=== PATIENT | female | born 1990 | race Hispanic/Latino ===

== ENCOUNTER 2022-02-18 09:07 | Outpatient (CLI) | payer OTHER | END 2022-02-18 09:08 | disposition home or self-care (01) | LOC: CSHULT 09:07 | PROVIDERS: ATTEND Nurse Practitioner Women's Health | DX: Z34.82 Encounter for supervision of other normal pregnancy, second trimester (principal); Z3A.21 21 weeks gestation of pregnancy | CPT/HCPCS: 76805 ==

== ENCOUNTER 2022-06-13 14:11 | Inpatient (IN) | payer MEDICAID, OTHER ==
[~2022-06-13 14:11] MED LIST: Bupivacaine/Epinephrine 0.25% 30 ML VIAL ONE
[2022-06-13] MEDS ORDERED: Promethazine HCl 25 MG/ML VIAL IM PRN ×2 (15:03→19:08)
[2022-06-13] MEDS ORDERED: Butorphanol Tartrate 1 MG/ML VIAL SLOW IVP PRN (15:03)
[2022-06-13] MEDS ORDERED: Acetaminophen 500 MG TAB PO PRN (15:03)
[2022-06-13] MEDS ORDERED: HYDROcodone/Acetaminophen 5/325 mg Tablet PO PRN ×3 (15:03→22:02)
[2022-06-13] MEDS ORDERED: hydrALAZINE 20 MG/ML VIAL SLOW IVP PRN ×2 (15:03→22:02)
[2022-06-13] MEDS ORDERED: Carboprost 250 MCG/ML AMP IM PRN (15:03)
[2022-06-13] MEDS ORDERED: Diphenoxylate HCl/Atropine Tablet PO PRN (15:03)
[2022-06-13] MEDS ORDERED: Ondansetron PF 4 MG/2 ML Vial IVP PRN ×3 (15:03→22:02)
[2022-06-13] MEDS ORDERED: Lidocaine 1% (PF) 30 ML VIAL SC PRN (15:03)
[2022-06-13] MEDS ORDERED: Ibuprofen 800 MG TAB PO PRN (15:03)
[2022-06-13] MEDS ORDERED: Methylergonovine 0.2 MG/ML VIAL IM PRN (15:03)
[2022-06-13] MEDS ORDERED: NS w/ Oxytocin 30 units 500 ML IV SCH ×3 (15:15→22:30)
[2022-06-13] MEDS ORDERED: Lactated Ringer's 1,000 ML IV SCH (15:15)
[2022-06-13 15:42] VITALS: BMI 34.7
[2022-06-13] MEDS ORDERED: NS w/ Oxytocin 30 units 500 ML ONE (15:44)
[2022-06-13 16:47] LABS: Hemoglobin 12.2 g/dL (12.0-15.5); Mean Corpuscular HGB CONC 34.7 g/dL (32.0-36.0); Mean Corpuscular Hemoglobin 31.2 pg (27.0-33.0); Mean Platelet Volume 10.4 fl (7.4-10.4); Platelet Count 204 10x3/uL (150-450); RBC Distribution Width 12.7 % (11.5-14.5); Red Blood Cell (RBC) Count 3.91 10x6/uL (3.90-5.03); White Blood Cell (WBC) Count 7.9 10x3/uL (3.5-10.5)
[2022-06-13 17:15] LABS: Hep B Surf Ag Non-Reactive S/CO (NonReactive)
[2022-06-13 17:15] LABS: Syphilis Antibody Nonreactive (Nonreactive); Syphilis Antibody Index 0.21 S/CO (<1.00 Non-Reactive)
[2022-06-13 17:21] LABS: HBSAg Index 0.21 S/CO (0-0.99)
[2022-06-13] MEDS ORDERED: Fentanyl 2 mcg/Bup 0.1% Cadd 100 ML ONE (18:33)
[2022-06-13] MEDS ORDERED: ePHEDrine Sulfate 50 MG/10 ML VIAL SLOW IVP PRN (19:08)
[2022-06-13] MEDS ORDERED: Moisturizing Cream (Eucerin) 113 GM JAR TOP PRN (19:08)
[2022-06-13] MEDS ORDERED: Naloxone HCl 0.4 mg/ml Vial IVP PRN ×2 (19:08)
[2022-06-13] MEDS ORDERED: Acetaminophen 325 MG TAB PO PRN (19:08)
[2022-06-13] MEDS ORDERED: Lactated Ringer's 500 ML IV PRN (19:08)
[2022-06-13] MEDS ORDERED: diphenhydrAMINE 50 MG/ML VIAL IVP PRN (19:08)
[2022-06-13 19:14] LABS: SARS-CoV-2 NAA Rapid Test Not Detected (NotDetected)
[2022-06-13] MEDS ORDERED: Fentanyl 2 mcg/Bupivacaine 0.1% Cassette 100 ML EPIDURAL SCH (19:15)
[2022-06-13] MEDS ORDERED: Communication Order-Pharmacy FS SCH (19:15)
[2022-06-13] MEDS ORDERED: Misoprostol 200 MCG TAB ONE (19:38)
[2022-06-13] MEDS ORDERED: diphenhydrAMINE 25 MG CAP PO PRN (22:02)
[2022-06-13] MEDS ORDERED: Boostrix 0.5 ML (Tdap) VIAL IM ONE (22:02)
[2022-06-13] MEDS ORDERED: Bisacodyl 10 MG SUPP PR PRN (22:02)
[2022-06-13] MEDS ORDERED: Lanolin Ointment 7 GM TUBE TOP PRN (22:02)
[2022-06-13] MEDS ORDERED: Milk Of Magnesia 30 ML UDCUP PO PRN (22:02)
[2022-06-13] MEDS ORDERED: Ibuprofen 800 MG TAB PO SCH (22:30)
[2022-06-13] MEDS ORDERED: Docusate 100 MG CAP PO SCH (22:30)
[2022-06-14] MEDS: Ibuprofen 800 MG TAB PO SCH ×3 (06:34→21:54)
[2022-06-14] MEDS: Prenatal Vitamin 1 TAB PO SCH (09:51)
[2022-06-14] MEDS: Docusate 100 MG CAP PO SCH ×2 (09:51→21:54)
[2022-06-14] MEDS: Ferrous Sulfate 325 MG TAB PO SCH ×2 (14:28→18:04)
[2022-06-14 17:13] VITALS: TEMP 97.9
[2022-06-15] MEDS: Ibuprofen 800 MG TAB PO SCH (05:15)
[2022-06-15 06:22] VITALS: BP 111/71
[2022-06-15] MEDS: Prenatal Vitamin 1 TAB PO SCH (08:31)
[2022-06-15] MEDS: Docusate 100 MG CAP PO SCH (08:31)
[2022-06-15] MEDS: Ferrous Sulfate 325 MG TAB PO SCH (08:32)
== END 2022-06-15 13:40 | disposition home or self-care (01) | DRG 807 ==
LOC: CSHERS 14:11 → CSHLD 15:19 → CSHPP 06-14 13:54
PROVIDERS: ADMIT Family Medicine; ATTEND Family Medicine
PROC: 10E0XZZ Delivery of Products of Conception, External Approach (ICD-10-PCS; principal; 2022-06-13)
DX: O42.02 Full-term premature rupture of membranes, onset of labor within 24 hours of rupture (principal); Z37.0 Single live birth; Z20.822 Contact with and (suspected) exposure to COVID-19; Z3A.38 38 weeks gestation of pregnancy
CPT/HCPCS: 36415; 51702; 85027; 86780; 86850; 86900; 86901; 87340; 99285; J2590; U0002